=== PATIENT | male | born 1985 | race Two or more races ===

== ENCOUNTER 2025-01-02 18:28 | Emergency (ER) | payer MEDICARE, MEDICAID, SELFPAY ==
[2025-01-02 18:29] VITALS: BMI 26.4
[2025-01-02 18:36] VITALS: BP 144/84; PULSE 120; RESP 18; TEMP 38.1; O2SAT 96
--- NOTE | 2025-01-02 18:47 | XR_ITS ---
Examination: Left elbow 3 views Technique: Elbow AP, oblique, lateral 3 views Exam date and time: January 02, 2025, 1849 hrs. Indications: Injury to the elbow today, elbow pain. Findings: No fracture or dislocation. No foreign body. No elbow effusion. Impression: No acute fracture..
--- NOTE | 2025-01-02 18:47 | XR_ITS ---
Examination: Forearm, right, 2 views. Technique: Forearm, AP, lateral 2 views Date and time of exam: January 02, 2025, 1850 hrs. Indications: Injury to the forearm today, forearm pain. Findings: No acute fracture. On the lateral view the distal ulna is dorsally positioned Impression: No acute fracture On the lateral view the distal ulna is dorsally positioned, clinical correlation advised, recommend follow-up true lateral view of the wrist as clinically warranted
[2025-01-02 19:52] LABS: Basophils # (Auto) 0.0 Thou/mm3 (0.0-0.2); Basophils % (Auto) 0 % (0-2.5); Eosinophils # (Auto) 0.1 Thou/mm3 (0.0-0.5); Eosinophils % (Auto) 1 % (0-10); Hematocrit 43.1 % (41.0-53.0); Hemoglobin 14.3 g/dL (13.5-16.0); Immature Granulocytes Auto 0.04 Thou/mm3 (0.00-0.00); Lymphocytes # (Auto) 0.7 Thou/mm3 (1.0-4.8); Lymphocytes % (Auto) 9 % (10-50); Mean Corpuscular HGB Conc 33.2 g/dl (31.0-37.0); Mean Corpuscular Hemoglobin 29.4 pg (25.0-35.0); Mean Corpuscular Volume 89 fL (80-100); Monocytes # (Auto) 0.5 Thou/mm3 (0.0-0.8); Monocytes % (Auto) 6 % (0-12); Neutrophils # (Auto) 6.4 Thou/mm3 (1.8-7.7); Neutrophils % (Auto) 84 % (37-80); Nucleated Red Blood Cell # 0.00 Thou/mm3 (0.00-0.00); Nucleated Red Blood Cell % 0 /100 WBC (0); Platelet Count 182 Thou/mm3 (140-440); RDW Standard Deviation 43.1 fL (35.1-43.9); Red Blood Count 4.87 Miln/mm3 (4.50-5.90); White Blood Count 7.6 Thou/mm3 (3.8-10.6)
[2025-01-02] MEDS: ACETAMINOPHEN 500 MG TABLET 1000 MG PO (20:14)
[2025-01-02 20:49] LABS: Alanine Aminotransferase 16 U/L (10-49); Albumin, Serum 4.3 gm/dL (3.5-5.0); Albumin/Globulin Ratio 1.2 (1.2-2.2); Alkaline Phosphatase 92 U/L (46-116); Anion Gap 12 (7-16); Aspartate Amino Transferase 23 U/L (0-34); BUN/Creatinine Ratio 8 Ratio (12-20); Bilirubin,Total 1.2 mg/dL (0.3-1.2); Blood Urea Nitrogen 7 mg/dL (9-23); Calcium 9.5 mg/dL (8.3-10.6); Calcium (Corrected) 9.5 mg/dL (8.5-10.1); Carbon Dioxide 24.2 mMol/L (20.0-31.0); Chloride 101 mMol/L (98-107); Creatinine (Component) 0.9 mg/dL (0.6-1.3); Estimated Creatinine Clearance 123.3 mL/min (>60); Globulin 3.6 gm/dL (2.3-3.5); Glucose 229 mg/dL (74-106); Osmolality,Calculated 278 (275-295); Potassium 3.8 mMol/L (3.4-5.1); Sodium 137 mMol/L (136-145); Total Protein 7.9 gm/dL (5.7-8.2); eGFR > 60 See Note
--- NOTE | 2025-01-02 21:04 | EDNOTE_ITS ---
Upper Extremity Injury RME/HPI General Chief Complaint: Hand/Wrist Problems Stated Complaint: Elbow injury Time Seen by Provider: 01/02/25 18:32 Source: patient and family Arrival date/time: 01/02/25 18:28 This is a case of a 39-year-old male who came in in the emergency room due to left forearm and left elbow injury history of present illness today when the patient was in the [place] accidentally twisted and hit his elbow and forearm by a metal sustaining hematoma pain and swelling patient also had fever cough and nasal congestion for 3 days thus decided to sought consult here in the emergency room no other injury noted no head neck chest or abdominal injury no loss of consciousness denies shortness of breath or chest pain Limitations: no limitations Related Data Previous Rx's ?Medication ?Instructions ?Recorded acetaminophen 325 mg capsule 975 mg (3 x 325 mg) PO Q6 H PRN 09/24/20 pain #30 caps clindamycin HCl 150 mg capsule 450 mg (3 x 150 mg) PO TID #30 caps 09/24/20 ibuprofen 800 mg tablet 800 mg PO TID #20 tabs 09/24 albuterol sulfate 90 mcg/actuation 1 inh inhalation QI D PRN shortness 01/02/25 aerosol inhaler (Ventolin HFA) of breath or wheezing # 8.5 grams cephalexin 500 mg capsule 500 mg PO QID #40 caps 01/02 ibuprofen 800 mg tablet 800 mg PO Q8H PRN pain #20 t abs 01/02/25 promethazine-DM 6.25 mg-15 mg/5 mL 5 ml PO Q6H PRN cou gh #118 mL 01/02/25 oral syrup Allergies Allergy/AdvReac Type Severity Reaction Status Date / Time No Known Allergies Allergy Unverified 01/02/25 18:49 Review of Systems Review of Systems Systems Reviewed: All systems reviewed, normal except as documented Constitutional Constitutional: Reports system reviewed and no additional complaints, except as documented and Reports as per HPI Cardiovascular Cardiovascular: Reports system reviewed and no additional complaints, except as documented and Reports as per HPI Respiratory Respiratory: Reports system reviewed and no additional complaints, except as documented and Reports as per HPI Gastrointestinal Gastrointestinal: Reports system reviewed and no additional complaints, except as documented and Reports as per HPI Musculoskeletal Musculoskeletal: Reports system reviewed and no additional complaints, except as documented and Reports as per HPI Integumentary/Breasts Skin/Breast: Reports system reviewed and no additional complaints, except as documented and Reports as per HPI Neurologic Neurologic: Reports system reviewed and no additional complaints, except as documented and Reports as per HPI Past Medical History Social History SMOKING STATUS: Never smoker ED Exam General Limitations: Present no limitations General appearance: Present alert, in no apparent distress and other (Patient is awake alert oriented not in distress nontoxic looking well-hydrated well- nourished) Head Head exam: Present atraumatic Eye Eye exam: Present normal appearance, PERRL and EOMI ENT ENT exam: Present normal exam, normal oropharynx and mucous membranes moist Neck Neck exam: Present normal inspection, full ROM and trachea midline; Absent tenderness, meningismus, lymphadenopathy or thyromegaly Chest Chest inspection: Present normal inspection and symmetric chest wall rise; Absent tenderness Respiratory Respiratory exam: Present normal lung sounds bilaterally and wheezes (Wheezing mild right lower lung field no crackles no rales or retraction no stridor); Absent respiratory distress, stridor, accessory muscle use or prolonged expiratory phase Cardiovascular Cardiovascular exam: Present normal rhythm and normal heart sounds; Absent regular rate, bradycardia, tachycardia, irregular rhythm or systolic murmur Abdominal Exam Abdominal exam: Present soft and normal bowel sounds; Absent distention, tenderness, guarding, rebound, rigidity, diminished bowel sounds, hyperactive bowel sounds, hypoactive bowel sounds or organomegaly Extremities Exam Extremities exam: Present normal inspection and full ROM Expanded Upper Extremity Exam Shoulder exam: Present normal inspection, full ROM and other (ROM intact neurovascular intact); Absent tenderness or swelling Arm exam: Present normal inspection, full ROM and other (ROM intact neurovascular intact); Absent tenderness or swelling Elbow exam: Present tenderness, swelling and other (Noted a moderate tenderness swelling on the left elbow ROM is limited sensory intact capillary refill less than 2 seconds neurovascular intact); Absent abrasion, laceration, ecchymosis, deformity, crepitus, dislocation, erythema, effusion, pain w/ pronation/supination or tenderness over radial head Forearm/Wrist exam: Present tenderness, swelling, ecchymosis and other (Moderate tenderness and swelling on the left forearm with ecchymosis and hematoma no crepitation no deformity ROM intact neurovascular in the); Absent abrasion, laceration, deformity, crepitus, dislocation, erythema, tenderness over anatomical snuff box or pain with axial thumb loading Hand exam: Present normal inspection and full ROM; Absent tenderness or swelling Back Exam Back exam: Present normal inspection and full ROM Neurological Exam Neurological exam: Present alert, oriented X3, CN II-XII intact, normal gait and reflexes normal; Absent motor sensory deficit Psychiatric Psychiatric exam: Present normal affect and normal mood Skin Skin exam: Present warm, dry, intact and normal color Course Quality Measures none Orders Category Date Time Status Bedside COVID-19 Antigen Test NOW Care 01/02/25 18:47 Active Bedside Influenza A&B Antigen Test NOW Care 01/02/25 18:47 Active XR elbow LT 2V Stat Exams 01/02/25 18:47 Completed XR forearm LT 2V Stat Exams 01/02/25 18:47 Completed CBC Stat Lab 01/02/25 19:36 Completed CMP [Comprehensive Metabolic Panel] Stat Lab 01/02/25 19:36 Completed Acetaminophen Tab [Tylenol ES Tab] Med 01/02/25 18:48 Discontinued 1,000 mg PO X1 ONE Vital Signs Vital signs: Vital Signs Temperature 100.5 F H 01/02/25 18:36 Pulse Rate 120 H 01/02/25 18:36 Respiratory Rate 18 01/02/25 18:36 Blood Pressure 144/84 H 01/02/25 18:36 Pulse Oximetry (%) 96 01/02/25 18:36 Oxygen Delivery Method Room Air 01/02/25 18:36 Patient is afebrile after giving ibuprofen at 99.5 patient heart rate went down to 100 not toxic cardiac not tachypneic BP stable not hypoxic oxygen saturation is 96% in room air Extremity Injury MDM Narrative MDM Narrative:: This is a case of a 39-year-old male who came in in the emergency room due to left forearm and left elbow injury history of present illness today when the patient was in [place] accidentally twisted and hit his elbow and forearm by a metal sustaining hematoma pain and swelling patient also had fever cough and nasal congestion for 3 days thus decided to sought consult here in the emergency room no other injury noted no head neck chest or abdominal injury no loss of consciousness denies shortness of breath or chest pain physical examination patient is awake alert oriented not in distress nontoxic looking HEENT exam is normal and unremarkable lungs sound mild wheezing on the right lower lung field no crackles no rales no retraction no stridor HEENT exam is normal abdominal exam is benign nonsurgical no guarding no rebound no rigidity no tenderness patient noted to have moderate tenderness on the left elbow and the left forearm with visualized hematoma and contusion no crepitation no deformity ROM intact pulses were full and equal capillary refill less than 2 seconds sensory intact x-ray showed no fracture no dislocation patient is negative for COVID and flu based on my physical examination and history patient sustained a hematoma and sprain on the left elbow and left forearm sling was applied patient tolerated well neurovascular intact RICE treatment will continue by the mother and by the patient at home patient was discharged with ibuprofen patient was also discharged with cephalexin for acute bronchitis and fever with Ventolin inhaler and cough medication Patient was discharged with comfortable condition walking with stable gait. Patient verbalized no further complains explained diagnosis and answered patient question. Patient is comfortable with the proposed management plan including the need to follow up with his/her primary care physician and any specialist if appl icable Discussed patient for any urgent condition or worsening sx, He/She needed to go to emergency room immediately or call 911. Patient acknowledge the responsibility to follow up as instructed and to monitor her/his symptoms. For any persistence of the symptoms for more than 3-5 days return precaution advised. Discussed the result of the test and was given printed discharge instruction Patient data External records reviewed:: [facility] previous records Clinical information provided by:: patient and family Social determinants that could affect healthcare access:: none Patient has the following chronic illnesses:: None How is presenting disease/condition affected by chronic disease/condition?: no chronic disease Evaluation data The following diagnostics were reviewed and interpreted by me:: lab results and radiology exam(s) Lab and/or radiology exams considered but not ordered:: Reviewed Interpretation Summary: Reviewed Medications / Prescriptions Medications or Prescriptions considered but not ordered:: Given Medication administrations:: Medication Administration History Discontinued Medications Acetaminophen (Acetaminophen 500 Mg Tablet) 1,000 mg PO X1 ONE Stop: 01/02/25 18:49 Last Admin: 01/02/25 20:14 Dose: 1,000 mg Documented By: CN Given Consultations Consultation(s) initiated? (list below): No Diagnosis Upper Extremity Injury Differential Diagnosis: sprain and strain of wrist, fracture of wrist and fracture of humerus Most likely diagnosis given after review of the tests above:: Elbow and forearm sprain hematoma Admission Indicated Admission indicated?: not indicated Explain why admission is indicated or not indicated:: Not indicated Admission Request Was there a request for admission?: No Admission Attestation Admission request attestation: Not indicated Disposition Plan Disposition Plan: Discharge Discharge Attestation Discharge Attestation: The patient and all family members were given an opportunity to ask questions and understood the discharge instructions. Discharge instructions specifically effects, indications for sooner follow up or return to the emergency department, and the expected course of current diagnosis. Patient condition: Stable Discharge Plan Plan Patient Disposition: HOME (Self Care) Patient condition on transfer: Stable Prescriptions/Referrals Prescriptions/Med Rec: New cephalexin 500 mg capsule 500 mg PO QID Qty: 40 0RF ibuprofen 800 mg tablet 800 mg PO Q8H PRN (Reason: pain) Qty: 20 0RF promethazine-DM 6.25-15 mg/5 mL syrup 5 ml PO Q6H PRN (Reason: cough) Qty: 118 0RF albuterol sulfate [Ventolin HFA] 90 mcg/actuation HFA aerosol inhaler 1 inh inhalation QID PRN (Reason: shortness of breath or wheezing) Qty: 8.5 0RF No Action ibuprofen 800 mg tablet 800 mg PO TID Qty: 20 0RF clindamycin HCl 150 mg capsule 450 mg PO TID Qty: 30 0RF acetaminophen 325 mg capsule 975 mg PO Q6H PRN (Reason: pain) Qty: 30 0RF Referrals: No Primary/Family,Physician [Primary Care Provider] - In 1 week Problem List Clinical Impression: Fever, Hematoma of left forearm, Elbow sprain, Acute bronchitis Patient/Caregiver Discharge Instructions Education Materials: Acute Bronchitis, ED Soft Tissue Contusion, ED Sprain, Elbow, ED FUO Adult Additional Instructions: Follow-up with your primary care physician in 2 days for reevaluation worsening symptoms or any emergent concern call 911 or go to the nearest emergency room take your medication as directed ice pack every 2 hours for 20 minutes for 24 hours then alternate with warm compress keep the sling in place until cleared with your primary care physician elevate to decrease swelling take your medication and finish the course of antibiotic continue to monitor your fever every 4-6 hours and take Tylenol or Motrin as needed for fever Print Language: Irish Stand Alone Forms: Lola Award Info., Work/School Release, Patient Portal Info Letter PA/MARLI Supervising Physician PA/MARLI Supervising Physician: Dr. Richards
[2025-01-02 21:40] VITALS: PULSE 78; RESP 18; TEMP 36.7; O2SAT 99
== END 2025-01-02 21:40 | disposition home or self-care (01) ==
PROVIDERS: Nurse Practitioner Family; Emergency Provider Emergency Medicine
DX: S53.402A Unspecified sprain of left elbow, initial encounter (principal); S50.12XA Contusion of left forearm, initial encounter; J20.9 Acute bronchitis, unspecified; X50.1XXA Overexertion from prolonged static or awkward postures, initial encounter; Y92.838 Other recreation area as the place of occurrence of the external cause
CPT/HCPCS: 36415; 73070; 73080; 73090; 80053; 85025; 99283; A9270